=== PATIENT | female | born 1970 | race Caucasian/White ===

== ENCOUNTER 2016-11-26 09:03 | Emergency (ER) | payer SELFPAY ==
[2016-11-26] MEDS ORDERED: OXYCODONE-ACETAMINOPHEN 5-325 MG TABLET PO ONE (11:49)
--- NOTE | 2016-11-26 11:55 | ER Document Report ---
HPI - HPI Patient complains to provider of: right knee pain Onset: Other - Tuesday Onset/Duration: Persistent Severity: Severe Pain Level: 5 Context: Patient presents to the emergency department with complaints of right knee pain. Reports history of torn meniscus with surgery many years ago. Reports the knee started hurting on Tuesday and started swelling. Denies injury or trauma. Denies other symptoms such as fever vomiting diarrhea. Associated Symptoms: None Exacerbated by: Walking Relieved by: Denies Similar symptoms previously: Yes - history of torn meniscus Recently seen / treated by doctor: No - CARDIOVASCULAR Cardiovascular: DENIES: Chest pain - DERM Skin Color: Normal Past Medical History - General Information source: Patient Last Menstrual Period: unsure - Social History Smoking Status: Current Every Day Smoker Cigarette use (# per day): Yes Chew tobacco use (# tins/day): No Frequency of alcohol use: None Drug Abuse: None Occupation: [employer] Lives with: Family Family History: None Patient has suicidal ideation: No Patient has homicidal ideation: No - Medical History Medical History: Negative Renal/ Medical History: Denies: Hx Peritoneal Dialysis Past Surgical History: Reports: Hx Orthopedic Surgery, Hx Tubal Ligation Vertical Provider Document - CONSTITUTIONAL Agree With Documented VS: Yes Exam Limitations: No Limitations General Appearance: WD/WN, No Apparent Distress - INFECTION CONTROL TRAVEL OUTSIDE OF THE [place] IN LAST 30 DAYS: No - HEENT HEENT: Normocephalic - NECK Neck: Normal Inspection, Supple - RESPIRATORY Respiratory: Breath Sounds Normal, No Respiratory Distress O2 Sat by Pulse Oximetry: 100 - CARDIOVASCULAR Cardiovascular: Regular Rate - MUSCULOSKELETAL/EXTREMETIES Musculoskeletal/Extremeties: Tender - right knee tender to palpation medially, with slight swelling,no erythema,no warmth, neg homans, good pedal pulse - NEURO Level of Consciousness: Awake, Alert, Appropriate Motor/Sensory: No Motor Deficit - DERM Integumentary: Warm, Dry Adult Front & Back Diagram: 1 - right knee anterior pain Course - Re-evaluation Re-evalutation: 11/26/16 Patient did not have a trauma. She just reported her knee starting hurting on Tuesday. Will place her in a knee immobilizer instructed her to follow up with [place] [facility] [place]. She verbalized understanding - Vital Signs Vital signs: Temp Pulse Resp BP Pulse Ox 98.3 F 89 16 141/66 H 100 11/26/16 09:07 11/26/16 09:07 11/26/16 09:07 11/26/16 09:07 11/26/16 09:07 Procedures - Immobilization Right Knee Pre-Proc Neuro Vasc Exam: Normal Immobilizer type: Knee immobilizer Performed by: PCT Post-Proc Neuro Vasc Exam: Unchanged from pre-exam Discharge - Discharge Clinical Impression: Right knee pain, Elevated blood pressure reading Condition: Stable Disposition: HOME, SELF-CARE Instructions: Use of Crutches ([facility]), Oral Narcotic Medication ([facility]), Suspected Internal Knee Injury ([facility]), Ice & Elevation ([facility]), Knee Immobilizing Splint ([facility] ), Ibuprofen (General) ([facility]) Additional Instructions: *You have been evaluated for right knee pain *Maintain the splint, use the crutches *Rest/Ice/Elevate the knee *Follow up with orthopedics tomorrow-call for an appointment *Take medication as prescribed *Return to ED for worsening condition, changes, needs Prescriptions: Ibuprofen [Motrin 800 mg Tablet] 800 mg PO TID #30 tablet Oxycodone HCl/Acetaminophen [Percocet 5-325 mg Tablet] 1 - 2 tab PO ASDIR PRN # 15 tablet PRN Reason: Forms: Elevated Blood Pressure, Return to Work
[2016-11-26 12:09] VITALS: BP 134/62
== END 2016-11-26 12:00 | disposition home or self-care (01) ==
LOC: ER 09:03
DX: M25.561 Pain in right knee (principal); R03.0 Elevated blood-pressure reading, without diagnosis of hypertension; F17.210 Nicotine dependence, cigarettes, uncomplicated; Z98.51 Tubal ligation status
CPT/HCPCS: 99283; L1830